=== PATIENT | male | born 1980 | race Caucasian/White ===

== ENCOUNTER → 2018-11-30 | Outpatient (CLI) | payer BC ==
--- NOTE | 2018-11-30 10:18 | REP ---
Clinical: Left shoulder pain . Technique: Internal rotation, external rotation, and Y view. Findings: No acute fracture or dislocation. The acromioclavicular and glenohumeral joints are intact. No periarticular calcifications or degenerative changes are appreciated. Sub acromial space is normal. Surrounding soft tissues are unremarkable. Impression: Normal age-appropriate left shoulder radiographs. Electronically Signed by Fernando Carson MD 11/30/2018 10:09 A
== END ==
LOC: M WUC 09:59
PROVIDERS: ATTEND Physician Assistant
DX: M25.512 Pain in left shoulder (principal)

== ENCOUNTER → 2020-08-22 | Outpatient (CLI) | payer BC ==
--- NOTE | 2020-08-22 11:32 | REP ---
INDICATION: PAIN COMPARISON: None. TECHNIQUE: AP, lateral, bilateral oblique and sunrise views. FINDINGS: The osseous structures and joint spaces are intact and normal. There is no evidence for acute fracture or dislocation. No joint effusion is appreciated. Surrounding soft tissues are unremarkable. No subcutaneous emphysema or radiodense foreign body. IMPRESSION: Normal examination. No acute pathology appreciated. <Electronically signed by Fernando Carson > 08/22/20 [id number]
== END ==
LOC: M WUC 09:32
PROVIDERS: ATTEND Physician Assistant
DX: M25.561 Pain in right knee (principal)

== ENCOUNTER 2024-12-03 21:09 | Emergency (ER) | payer OTHER ==
[~2024-12-03] VITALS: Ht 172.7 cm; Wt 110.6 kg
[2024-12-03 21:17] VITALS: TEMP 97.4
[2024-12-04] MEDS: KETOROLAC 30 MG/ML 1ML VIAL IV ONE (02:49)
[2024-12-04] MEDS: METHOCARBAMOL 1,000 MG/10 ML VIAL IV ONE (02:50)
[2024-12-04] MEDS ORDERED: METH-1165 PO (05:15)
[2024-12-04] MEDS ORDERED: KETO10TAB PO (05:15)
[2024-12-04] MEDS: OXYCODONE/APAP 5MG/325MG(HOME DOSE PACK) PO ONE (05:31)
[2024-12-04 05:38] VITALS: BP 148/74; O2SAT 97
== END 2024-12-04 05:38 | disposition home or self-care (01) ==
LOC: M ED 21:09
DX: M62.830 Muscle spasm of back (principal); F17.290 Nicotine dependence, other tobacco product, uncomplicated; Z79.2 Long term (current) use of antibiotics; Z79.899 Other long term (current) drug therapy
CPT/HCPCS: 72125; 96374; 96375; 99284; J1885; J2800